=== PATIENT | female | born 1980 | race Caucasian/White ===

== ENCOUNTER 2017-03-03 23:20 | Emergency (ER) | payer MEDICAID, OTHER ==
[~2017-03-03] VITALS: Ht 175.3 cm; Wt 100.7 kg
[~2017-03-03 23:20] MED LIST: VIC
[2017-03-03 23:27] VITALS: BP 145/81
--- NOTE | 2017-03-04 00:13 | NUR ---
Note [email or web address] in EDM - 03/04/17 at 0130 by ISAMAR Patient discharged with v/s stable. Written and verbal after care instructions given and explained. Patient alert, oriented and verbalized understanding of instructions. Ambulatory with steady gait. All questions addressed prior to discharge. ID band removed. Patient advised to follow up with PMD. Rx of AMBIEN. SWEET given. Patient educated on indication of medication including possible reaction and side effects. Opportunity to ask questions provided and answered.
--- NOTE | 2017-03-04 00:37 | NUR ---
PT TAKEN TO BED 7
--- NOTE | 2017-03-04 00:45 | NUR ---
Dr. Curiel evaluating patient at bedside.
--- NOTE | 2017-03-04 00:52 | NUR ---
PT IS 36/F BIB FAMILY TO ED WITH C/O LEFT ARM PAIN FOR A WEEK, NO TRAUMA NOR INJURYPT STATES MED HX OF HEART CONDITION. DENIES N/V/D; SKIN IS PINK/WARM/DRY; AAOX4 WITH EVEN AND STEADY GAIT; LUNGS CLEAR BL; HR EVEN AND REGULAR; PT DENIES ANY FEVER, CP, SOB, OR COUGH AT THIS TIME; PATIENT STATES PAIN OF 8/10 AT THIS TIME; VSS; PATIENT POSITIONED FOR COMFORT; HOB ELEVATED; BEDRAILS UP X2; BED DOWN. ER MD MADE AWARE OF PT STATUS.
[2017-03-04] MEDS: KETOROLAC 60 MG/2 ML VIAL IM ONE (01:03)
--- NOTE | 2017-03-04 01:04 | NUR ---
SADAF ORTEGA GIVEN-NADR AT THIS TIME Addendum: 03/04/17 at 0158 by MEDRJJ SADAF REED GIVEN-NADR AT THIS TIME
[2017-03-04 01:13] VITALS: BP 136/71
--- NOTE | 2017-03-04 01:13 | NUR ---
Patient discharged with v/s stable. Written and verbal after care instructions given and explained. Patient alert, oriented and verbalized understanding of instructions. Ambulatory with steady gait. All questions addressed prior to discharge. ID band removed. Patient advised to follow up with PMD. Rx of YU. MOTRIN given. Patient educated on indication of medication including possible reaction and side effects. Opportunity to ask questions provided and answered.
== END 2017-03-04 01:13 | disposition home or self-care (01) ==
LOC: MED 23:20
DX: M77.12 Lateral epicondylitis, left elbow (principal)
CPT/HCPCS: 96372; 99283; J1885